=== PATIENT | male | born 1980 | race Caucasian/White ===

== ENCOUNTER 2018-08-04 07:59 | Emergency (ER) | payer OTHER, MEDICAID, SELFPAY ==
[2018-08-04 08:08] VITALS: BP 139/79; PULSE 57; RESP 17; TEMP 36.9; O2SAT 100
--- NOTE | 2018-08-04 08:08 | DI.RAD.S_ITS ---
PROCEDURE: XR CHEST 1V INDICATIONS: chest pressure TECHNIQUE: One view of the chest was acquired. COMPARISON: None. FINDINGS: Surgical changes and devices: None. Lungs and pleura: Lungs are clear. No pleural effusions or pneumothorax. Mediastinum: Mediastinal contours appear normal. Heart size is normal. Bones and chest wall: No suspicious bony lesions. Overlying soft tissues appear unremarkable. IMPRESSION: No acute pulmonary pathology. Dictated by: Justin Bernard M.D. on 08/04/2018 at 9:20 Approved by: Justin Bernard M.D. on 08/04/2018 at 9:22
--- NOTE | 2018-08-04 08:17 | ED.CHESTPAIN ---
HPI - Chest Pain General Chief Complaint: Chest Pain Stated Complaint: chest tightness Time Seen by Provider: 08/04/18 08:01 Source: patient Mode of arrival: ambulatory History of Present Illness HPI narrative: 37-year-old male smoker with a benign medical history presents with left anterior chest pain off and on for the past few days. Patient had initially seen his primary care provider in the evaluation highly suggested musculoskeletal etiology as it was sharp and stabbing and completely reproducible in nature. The patient states that it became a bit more constant last night. He denies associated cardiac equivalent such as dizziness, weakness or lightheadedness. He denies nausea, vomiting, diaphoresis, radiation, or provocation with exertion. He denies any cough productive of colored sputum or blood Related Data Home Medications Medication Instructions Recorded Confirmed atorvastatin [Lipitor] 10 mg PO DAILY 08/04/18 08/04/18 nabumetone 500 mg PO BID 08/04/18 08/04/18 Allergies Allergy/AdvReac Type Severity Reaction Status Date / Time No Known Drug Allergies Allergy Verified 08/04/18 08:11 Review of Systems Constitutional Denies chills, Denies fever(s), Denies lethargy and Denies weakness Eyes Denies change in vision, Denies eye discharge, Denies irritation and Denies loss of vision ENT Ears, Nose, Mouth, and Throat: Denies change in voice, Denies neck pain and Denies sore throat Cardiovascular Reports chest pain, Denies irregular heart rhythm, Denies lightheadedness, Denies palpitations, Denies dyspnea, Denies dyspnea on exertion and Denies orthopnea Respiratory Denies cough, Denies dyspnea, Denies dyspnea on exertion and Denies wheezing Gastrointestinal Gastrointestinal: Denies abdominal pain, Denies change in bowel habits, Denies diarrhea, Denies nausea and Denies vomiting Genitourinary Denies hematuria, Denies flank pain, Denies urinary incontinence and Denies urinary urgency Musculoskeletal Denies neck pain Integumentary/Breasts Denies pruritus, Denies erythema, Denies rash and Denies wounds Neurologic Denies confusion, Denies loss of vision and Denies weakness Psychiatric Denies anxiety, Denies confusion, Denies depression, Denies homicidal ideation and Denies suicidal ideation Endocrine Denies palpitations Hematologic/Lymphatic Denies easy bruising Allergic/Immunologic Denies wheezing [facility] Social History Smoking Status: Current every day smoker Social History Smoking Status: Current every day smoker Exam Narrative Exam Narrative: GENERAL: 37-year-old male patient who is stated age in appearance, resting comfortably although a bit anxious HEAD: Atraumatic. Normocephalic. No temporal or scalp tenderness. EYES: Pupils equal round and reactive. Extraocular motions intact. No scleral icterus. No injection or drainage. ENT: Nose without bleeding, purulent drainage or septal hematoma. Throat without erythema, tonsillar hypertrophy or exudate. Uvula midline. Airway patent. NECK: Trachea midline. No JVD or lymphadenopathy. Supple, nontender, no meningeal signs. CARDIOVASCULAR: Left anterior chest tender to palpate, also worse with range of motion of left arm Regular rate and rhythm without murmurs, gallops, or rubs. RESPIRATORY: Clear to auscultation. Breath sounds equal bilaterally. No wheezes, rales, or rhonchi. GASTROINTESTINAL: Abdomen soft, non-tender, nondistended. No hepato-splenomegaly, or palpable masses. No guarding. EXTREMITIES: No clubbing, cyanosis, or edema. No joint tenderness, effusion, or edema noted. BACK: Nontender without deformity or crepitance. No flank tenderness. NEURO: AOx3. SKIN: No rash or erythema. Initial Vital Signs Initial Vital Signs: Vital Signs Temperature 98.5 F 08/04/18 08:08 Pulse Rate 57 L 08/04/18 08:08 Respiratory Rate 17 08/04/18 08:08 Blood Pressure 139/79 08/04/18 08:08 Pulse Oximetry 100 08/04/18 08:08 Scores HEART Score Heart Score history: Slightly Suspicious Heart Score EKG: Normal Heart Score Age: < 45 years old Heart Score risk factors: 1-2 risk factors Heart Score troponin: < or = to normal limit Heart Score Total: 1 Course Orders Ordered: Discontinued Medications Aspirin (Aspirin Chew) 324 mg PO NOW ONE Stop: 08/04/18 08:09 Last Admin: 08/04/18 08:35 Dose: 324 mg Sodium Chloride (Normal Saline 0.9%) 1,000 mls @ 150 mls/hr IV CONT NELSON Last Admin: 08/04/18 09:58 Dose: Not Given Vital Signs - 8 hr 08/04/18 10:07 Pulse Rate 57 L Respiratory Rate 16 Blood Pressure 128/79 Pulse Oximetry 98 MDM - Chest Pain Lab Data Result diagrams: 08/04/18 08:25 08/04/18 08:25 Lab Results 08/04/18 08/04/18 08/04/18 Range/Units 08:25 08:25 08:25 WBC 5.4 (4.5-11.0) X10^3/uL RBC 5.18 (4.5-5.9) X10^6/uL Hgb 15.3 (13.5-17.5) g/dL Hct 44.2 (41-53) % MCV 85.3 (80-100) fL MCH 29.6 (26-34) PG MCHC 34.7 (30-36) % RDW 13.8 (11.6-14.8) % Plt Count 206 (150-400) X10^3/uL Neut % (Auto) 68.9 (50-75) % Lymph % (Auto) 19.0 L (25-40) % [place] % (Auto) 6.3 (3-14) % Eos % (Auto) 4.2 H (2-4) % Baso % (Auto) 1.6 (0-2) % Neut # (Auto) 3700 (4636-3421) /uL Lymph # (Auto) 1000 L (5993-6062) /uL [place] # (Auto) 300 (0-900) /uL Eos # (Auto) 200 (0-450) /uL Baso # (Auto) 100 (0-100) /uL D-Dimer < 200 (<230) ng/mL Sodium 139 (137-145) mmol/L Potassium 4.0 (3.4-5.1) mmol/L Chloride 104 (98-107) mmol/L Carbon Dioxide 25 (22-32) mmol/L BUN 15 (9-20) mg/dL Creatinine 0.90 (0.66-1.25) mg/dL Estimated GFR > 60.0 (>60) mL/min BUN/Creatinine Ratio 16.7 (6-22) Glucose 122 H (70-100) mg/dL Calcium 9.6 (8.4-10.2) mg/dL Total Bilirubin 1.0 (0.2-1.3) mg/dL AST 23 (17-59) IU/L ALT 31 (21-72) IU/L Alkaline Phosphatase 62 (38-126) U/L Total Creatine Kinase 121 (55-170) U/L CK-MB (CK-2) 1.42 (<2.37) ng/mL CK-MB (CK-2) Rel Index 1.2 L (1.5-5.0) % Troponin I < 0.012 (0.01-0.034) ng/mL Total Protein 7.5 (6.3-8.2) g/dL Albumin 4.7 (3.5-5.0) g/dL Globulin 2.8 (1.7-4.1) g/dL Albumin/Globulin Ratio 1.7 (1.0-2.8) Lipase 34 (23-300) U/L Imaging Data Chest x-ray: Radiologist's impression: [address] [address] XRay Report Signed Patient: Tommy Ken [facility]#: [id number] : 1980Acct:[id number] Age/Sex: 37 / MDate of Service: 08/04/18 Loc: ED Accession Number: [id number] Procedure: XR chest 1V Ordering Provider: Jaycob Mcginnis D.O. PROCEDURE: XR CHEST 1V INDICATIONS: chest pressure TECHNIQUE: One view of the chest was acquired. COMPARISON: None. FINDINGS: Surgical changes and devices: None. Lungs and pleura: Lungs are clear. No pleural effusions or pneumothorax. Mediastinum: Mediastinal contours appear normal. Heart size is normal. Bones and chest wall: No suspicious bony lesions. Overlying soft tissues appear unremarkable. IMPRESSION: No acute pulmonary pathology. Dictated by: Justin Bernard M.D. on 08/04/2018 at 9:20 Approved by: Justin Bernard M.D. on 08/04/2018 at 9:22 [facility] Narrative Medical decision making narrative: Multiple etiologies for patient's symptoms considered including: [Cardiac ischemia versus pulmonary embolism versus chest wall strain versus other] Patient's symptoms improved or duration of stay with above-stated therapies. Findings and discharge diagnosis discussed with patient/family followed by verbalization of understanding Return precautions discussed with patient/family whom verbalize understanding. Discharge Plan Departure Patient Disposition: Home Clinical Impression: Atypical chest pain Discharge Date/Time: 08/04/18 10:08 Interventions: ED Discharge Assessment Last Done: 08/04/18 10:07 Instructions: DI for Atypical Chest Pain Activity Restrictions/Additional Instructions: *You have been diagnosed with [atypical chest pain] *What to do: *Take medications as directed *Follow up with your primary care provider in 2-3 days, call for an appointment. Let them know you were seen in the Emergency Department and that we ask that you be seen in follow up *Return to ER if you should have any new, worsening or concerning symptoms Prescriptions: No Action atorvastatin [Lipitor] 10 mg Tablet 10 mg PO DAILY RF: 0 nabumetone 500 mg Tablet 500 mg PO BID RF: 0 Referrals: [facility] [Outside]
[2018-08-04 08:32] LABS: Add Manual Diff / Slide Review NO; Basophils Absolute Auto 100 /uL (0-100); Basophils Percent Auto 1.6 % (0-2); Eosinophils Absolute Auto 200 /uL (0-450); Eosinophils Percent Auto 4.2 % (2-4); Hematocrit 44.2 % (41-53); Hemoglobin 15.3 g/dL (13.5-17.5); Lymphocytes Absolute Auto 1000 /uL (1100-4500); Mean Corpuscular HGB Conc 34.7 % (30-36); Mean Corpuscular Hemoglobin 29.6 PG (26-34); Mean Corpuscular Volume 85.3 fL (80-100); Monocytes Absolute Auto 300 /uL (0-900); Monocytes Percent Auto 6.3 % (3-14); Neutrophils Absolute Auto 3700 /uL (1500-7000); Neutrophils Percent Auto 68.9 % (50-75); Platelet Count 206 X10^3/uL (150-400); Red Blood Cell Count 5.18 X10^6/uL (4.5-5.9); Red Cell Distribution Width 13.8 % (11.6-14.8); White Blood Cell Count 5.4 X10^3/uL (4.5-11.0)
[2018-08-04] MEDS: ASPIRIN 81 MG TAB 324 MG PO (08:35)
[2018-08-04 08:43] LABS: D Dimer < 200 ng/mL (<230)
[2018-08-04 08:45] LABS: Alanine Aminotransferase 31 IU/L (21-72); Albumin 4.7 g/dL (3.5-5.0); Albumin Globulin Ratio 1.7 (1.0-2.8); Alkaline Phosphatase 62 U/L (38-126); Aspartate Aminotransferase 23 IU/L (17-59); BUN Creatinine Ratio 16.7 (6-22); Blood Urea Nitrogen 15 mg/dL (9-20); Calcium 9.6 mg/dL (8.4-10.2); Carbon Dioxide 25 mmol/L (22-32); Chloride 104 mmol/L (98-107); Creatine Kinase 121 U/L (55-170); Estimated Glomerular Filt Rate > 60.0 mL/min (>60); Globulin 2.8 g/dL (1.7-4.1); Glucose 122 mg/dL (70-100); HEMOLYSIS < 15 (0-50); Lipase 34 U/L (23-300); Sodium 139 mmol/L (137-145); Total Protein 7.5 g/dL (6.3-8.2)
[2018-08-04 08:57] LABS: Troponin I < 0.012 ng/mL (0.01-0.034)
[2018-08-04 09:00] LABS: CKMB % Relative Index 1.2 % (1.5-5.0); Creatine Kinase MB 1.42 ng/mL (<2.37)
[2018-08-04 09:09] VITALS: BP 118/73; PULSE 53; RESP 16; O2SAT 98
[2018-08-04 10:07] VITALS: BP 128/79; PULSE 57; RESP 16; O2SAT 98
== END 2018-08-04 10:08 | disposition home or self-care (01) ==
PROVIDERS: Emergency Provider Emergency Medicine
DX: R07.89 Other chest pain (principal)
CPT/HCPCS: 36591; 71045; 80053; 82550; 82553; 83690; 84484; 85025; 85379; 93005; 93010; 99282; 99285

== ENCOUNTER → 2018-08-07 15:17 | Outpatient (CLI) | payer BC, OTHER, MEDICAID, SELFPAY ==
[2018-08-07 18:59] LABS: Cholesterol 244 mg/dL (140-199); HDL Cholesterol 53 mg/dL (40-60); LDL Cholesterol Calculated 158 mg/dL (<100); Lipase 55 U/L (23-300); Triglycerides 164 mg/dL (35-150)
== END ==
PROVIDERS: Visit Provider Hospitalist
DX: R07.89 Other chest pain (principal)
CPT/HCPCS: 36415; 80061; 83690

== ENCOUNTER 2023-04-22 13:35 | Emergency (ER) | payer OTHER, SELFPAY ==
[2023-04-22 13:42] VITALS: BP 141/91; PULSE 85; RESP 16; TEMP 36.6; O2SAT 99; BMI 27.8
--- NOTE | 2023-04-22 13:55 | DI.RAD.S_ITS ---
PROCEDURE: XR FINGER RT MIN 2V INDICATIONS: crush injury TECHNIQUE: AP hand, 2 views of the 2nd finger(s) acquired. COMPARISON: None. FINDINGS: Bones: Small radiodensities adjacent to the 1st digit are present, consistent with small fracture fragments and/or foreign bodies. Soft tissues: No suspicious soft tissue calcifications. IMPRESSION: Small fracture fragments and/or foreign bodies adjacent to the 1st digit. Dictated by: Darius Meneses M.D. on 04/22/2023 at 14:22 Approved by: Darius Meneses M.D. on 04/22/2023 at 14:26
[2023-04-22] MEDS: IBUPROFEN 400 MG TABLET 800 MG PO (17:29)
[2023-04-22] MEDS: BACITRACIN OINT 0.9 GM PCKT 1 APPLIC TOP (17:30)
--- NOTE | 2023-04-22 17:54 | ED_ITS ---
HPI - Extremity Injury (Upper) <Willie Thompson PA-C - Last Filed: 04/22/23 18:01> General Chief Complaint: Extremity Injury, Upper Stated Complaint: smushed index finger right hand Time Seen by Provider: 04/22/23 15:00 Source: patient Mode of arrival: Ambulatory History of Present Illness HPI narrative: 42-year-old male with no reported past medical history presents to the ED status post a finger injury sustained at work. Patient states that his right pointer finger was accidentally smashed between 2 heavy pieces of metal. Bleeding is controlled with pressure. Patient is not on blood thinners. Patient denies numbness, tingling, weakness. Patient endorses pain in the injured finger. Patient endorses full range of motion. Related Data Previous Rx's Medication Instructions Recorded cephalexin 500 mg capsule 500 mg PO QID 5 days #20 caps 04/22/23 Allergies Allergy/AdvReac Type Severity Reaction Status Date / Time No Known Drug Allergies Allergy Verified 04/22/23 13:45 Review of Systems <Willie Thompson PA-C - Last Filed: 04/22/23 18:01> Constitutional Constitutional: Denies chills, Denies fatigue, Denies fever(s), Denies frequent falls, Denies lethargy and Denies weakness Eyes Eyes: Denies change in vision, Denies eye discharge, Denies irritation and Denies loss of vision ENT Ears, Nose, Mouth, and Throat: Denies change in voice, Denies dizziness, Denies neck pain, Denies sore throat and Denies throat swelling Cardiovascular Cardiovascular: Denies chest pain, Denies irregular heart rhythm, Denies lightheadedness, Denies palpitations, Denies dyspnea, Denies dyspnea on exertion and Denies orthopnea Respiratory Respiratory: Denies cough, Denies dyspnea, Denies dyspnea on exertion and Denies wheezing Gastrointestinal Gastrointestinal: Denies abdominal pain, Denies change in bowel habits, Denies diarrhea, Denies nausea and Denies vomiting Musculoskeletal Musculoskeletal: Denies neck pain and Denies numbness Integumentary/Breasts Skin/Breast: Denies pruritus, Denies erythema, Denies rash and Reports wounds Neurologic Neurologic: Denies behavioral changes, Denies confusion, Denies dizziness, Denies frequent falls, Denies loss of vision, Denies numbness and Denies weakness Psychiatric Psychiatric: Denies anxiety, Denies behavioral changes, Denies confusion, Denies depression, Denies homicidal ideation and Denies suicidal ideation Endocrine Endocrine: Denies fatigue, Denies flushing and Denies palpitations Hematologic/Lymphatic Hematologic/Lymphatic: Denies easy bruising Allergic/Immunologic Allergic/Immunologic: Denies urticaria, Denies throat swelling and Denies wheezing Patient History <Willie Thompson PA-C - Last Filed: 04/22/23 18:01> Surgical History Anesthesia History of vasectomy History of sinus surgery Social History Smoking Status: Current every day smoker Smoking Status: Current every day smoker alcohol intake frequency: 0-2 drinks per day Substance Use Type: marijuana Exam <Willie Thompson PA-C - Last Filed: 04/22/23 18:01> Narrative Exam Narrative: Const General:?cooperative, healthy appearing and comfortable HENID Head:?normal to inspection Ears:?hearing grossly normal bilaterally Nose:?external nose normal Face and sinus:?normal facial exam and sinuses nontender Mouth:?oral mucosae normal Throat:?posterior oropharynx normal Eyes General:?appearance normal, both eyes and all related structures Neck Neck:?normal visual inspection and no lymphadenopathy noted Resp Effort & Inspection:?normal respiratory effort Auscultation:?clear to auscultation bilaterally Cardio Rate:?regular rate Rhythm:?regular rhythm Integumentary There are 2 irregular lacerations to the right pointer finger. There is full range of motion. Strength and sensation is intact. Patient is neurovascularly intact. Bleeding is controlled with pressure. Neuro General:?patient alert, patient awake and patient oriented x3 Initial Vital Signs Initial Vital Signs: Vital Signs Temperature 98 F 04/22/23 13:42 Pulse Rate 85 04/22/23 13:42 Respiratory Rate 16 04/22/23 13:42 Blood Pressure 141/91 H 04/22/23 13:42 Pulse Oximetry 99 04/22/23 13:42 Oxygen Delivery Method Room Air 04/22/23 13:42 <Marguerite Mercado DO - Last Filed: 04/23/23 08:39> Initial Vital Signs Initial Vital Signs: Vital Signs Temperature 98 F 04/22/23 13:42 Pulse Rate 85 04/22/23 13:42 Respiratory Rate 16 04/22/23 13:42 Blood Pressure 141/91 H 04/22/23 13:42 Pulse Oximetry 99 04/22/23 13:42 Oxygen Delivery Method Room Air 04/22/23 13:42 Procedures <Willie Thompson PA-C - Last Filed: 04/22/23 18:01> Laceration Repair Laceration 1: Site: hand Side (If applicable): right Size (cm): 2 Description: irregular Depth: simple, single layer Local Anesthetic: lidocaine 2% Amount of anesthesia used (mL): 6 Pre-repair: wound explored, irrigated extensively, deep structures intact and wound margins revised Skin layer closed with: nylon Skin layer suture size: 5-0 Number of sutures: 13 Technique: simple, interrupted Laceration 2: Site: hand Side (If applicable): right Size (cm): 1.5 Description: linear Depth: simple, single layer Local Anesthetic: lidocaine 2% Amount of anesthesia used (mL): 2 Pre-repair: wound explored, irrigated extensively and deep structures intact Skin layer closed with: nylon Skin layer suture size: 5-0 Number of sutures: 5 Technique: simple, interrupted Course <Willie Thompson PA-C - Last Filed: 04/22/23 18:01> Orders Ordered: Discontinued Medications Bacitracin (Bacitracin Oint 0.9 Gm Pckt) 1 applic TOP NOW ONE Stop: 04/22/23 17:27 Last Admin: 04/22/23 17:30 Dose: 1 applic Documented By: ALTAGRACIA Bacitracin (Bacitracin Oint 0.9 Gm Pckt) 1 applic TOP NOW ONE Stop: 04/22/23 17:27 Last Admin: 04/22/23 17:30 Dose: Not Given Documented By: ALTAGRACIA Ibuprofen (Ibuprofen 400 Mg Tablet) 800 mg PO NOW ONE Stop: 04/22/23 17:23 Last Admin: 04/22/23 17:29 Dose: 800 mg Documented By: AMTeja Vital Signs Vital signs: Vital Signs - 8 hr 04/22/23 13:42 Temperature 98 F Pulse Rate 85 Respiratory Rate 16 Blood Pressure 141/91 H Pulse Oximetry 99 Oxygen Delivery Method Room Air <Marguerite Mercado DO - Last Filed: 04/23/23 08:39> Orders Ordered: Discontinued Medications Bacitracin (Bacitracin Oint 0.9 Gm Pckt) 1 applic TOP NOW ONE Stop: 04/22/23 17:27 Last Admin: 04/22/23 17:30 Dose: 1 applic Documented By: ALTAGRACIA Bacitracin (Bacitracin Oint 0.9 Gm Pckt) 1 applic TOP NOW ONE Stop: 04/22/23 17:27 Last Admin: 04/22/23 17:30 Dose: Not Given Documented By: ALTAGRACIA Ibuprofen (Ibuprofen 400 Mg Tablet) 800 mg PO NOW ONE Stop: 04/22/23 17:23 Last Admin: 04/22/23 17:29 Dose: 800 mg Documented By: AMTeja Vital Signs Vital signs: Vital Signs - 8 hr 04/22/23 13:42 Temperature 98 F Pulse Rate 85 Respiratory Rate 16 Blood Pressure 141/91 H Pulse Oximetry 99 Oxygen Delivery Method Room Air MDM - Extremity Injury (Upper) <Willie Thompson PA-C - Last Filed: 04/22/23 18:01> MDM Narrative Medical decision making narrative: 42-year-old male with no reported past medical history presents to the ED status post a finger injury sustained at work. Concern for fracture/dislocation versus laceration versus other. Obtained finger x-ray which shows small fracture fragments and are or foreign bodies adjacent to the 1st in the ED digit. Patient's history is more consistent with fracture fragments, he denies any foreign bodies as a possibility. Lacerations were repaired with 18 sutures. Sutures will need to be removed in 7-10 days. Prescribed antibiotics. Wound care instructions and suture removal discussed with patient. Recommend follow- up with hand specialist for further evaluation. ED return precautions discussed with patient. Patient verbalized understanding. Medical records reviewed: Yes Discharge Plan Departure Patient Disposition: Home Clinical Impression: Laceration Finger fracture Qualifiers: Encounter type: initial encounter Finger: index finger Fracture type: open Phalanx: unspecified phalanx Fracture alignment: nondisplaced Laterality: right Qualified Code(s): S62.600B - Fracture of unspecified phalanx of right index finger, initial encounter for open fracture Instructions: DI for Laceration Repair Activity Restrictions/Additional Instructions: You were evaluated in the ED today for a finger injury. You had a small fracture in the injured finger which showed up as small bone particles, however the bone is not structurally fracture. The laceration was repaired with 18 sutures. You have been prescribed antibiotics. Please follow-up with a hand specialist as soon as possible for further evaluation of the hand. Please watch for signs of infection including worsening redness, pain, swelling, discharge, warmth. Return to the ED if you note any signs of infection. Please keep the injury clean and dry for the 1st 24 hours, following which you may wash gently with soap and water. Please keep the finger dry with no wet dressings on for any length of time. Prescriptions: New cephalexin 500 mg capsule 500 mg PO QID 5 Days Qty: 20 0RF Stand Alone Forms: Patient Portal/API ED Sign-out <Marguerite Mercado DO - Last Filed: 04/23/23 08:39> Cosign ED Attending Cosignature Attestation: I was immediately available in the department for consultation.
== END 2023-04-22 17:44 | disposition home or self-care (01) ==
PROVIDERS: Emergency Provider Student in an Organized Health Care Education/Training Program
DX: S62.600A Fracture of unspecified phalanx of right index finger, initial encounter for closed fracture (principal); S61.210A Laceration without foreign body of right index finger without damage to nail, initial encounter; W23.0XXA Caught, crushed, jammed, or pinched between moving objects, initial encounter
CPT/HCPCS: 12002; 73140; 99283; 99284

== ENCOUNTER → 2023-05-22 13:44 | Outpatient (CLI) | payer OTHER, SELFPAY ==
[2023-05-22 15:27] LABS: Appearance Urine UA CLEAR; Bilirubin Urine UA NEGATIVE (NEGATIVE); Color Urine UA YELLOW; Glucose Urine UA NEGATIVE (Negative); Ketones Urine UA NEGATIVE (NEGATIVE); Leukocyte Esterase Urine UA NEGATIVE (NEGATIVE); Nitrite Urine UA NEGATIVE (Negative); Occult Blood Urine UA NEGATIVE (Negative); Protein Urine UA NEGATIVE (Negative); Urobilinogen Urine UA 0.2 E.U./dL (0.2)
[2023-05-22 15:29] LABS: Add Manual Diff / Slide Review NO; Basophils Absolute Auto 100 /uL (0-100); Basophils Percent Auto 0.9 % (0-2); Eosinophils Absolute Auto 200 /uL (0-450); Eosinophils Percent Auto 2.4 % (2-4); Hematocrit 42.9 % (41-53); Hemoglobin 14.6 g/dL (13.5-17.5); Lymphocytes Absolute Auto 1700 /uL (1100-4500); Lymphocytes Percent Auto 24.9 % (25-40); Mean Corpuscular HGB Conc 33.9 % (30-36); Mean Corpuscular Hemoglobin 28.7 PG (26-34); Mean Corpuscular Volume 84.5 fL (80-100); Monocytes Absolute Auto 500 /uL (0-900); Monocytes Percent Auto 6.7 % (3-14); Neutrophils Absolute Auto 4400 /uL (1500-7000); Neutrophils Percent Auto 65.1 % (50-75); Platelet Count 220 X10^3/uL (150-400); Red Blood Cell Count 5.08 X10^6/uL (4.5-5.9); Red Cell Distribution Width 13.3 % (11.6-14.8); White Blood Cell Count 6.8 X10^3/uL (4.5-11.0)
[2023-05-22 15:40] LABS: Bacteria Urine None Seen; RBC Urine 0-1/HPF (0-5/HPF); Squamous Epithelial Cell Urine None Seen (0-5/HPF); Urine Volume 10mL (spun); WBC Urine None Seen (0-5/HPF)
[2023-05-22 15:41] LABS: Culture Indicated Urine Specimen Cultured
[2023-05-22 16:05] LABS: Alanine Aminotransferase 32 IU/L (<50); Albumin 4.6 g/dL (3.5-5.0); Albumin Globulin Ratio 1.6 (1.0-2.8); Alkaline Phosphatase 61 U/L (38-126); Aspartate Aminotransferase 24 IU/L (17-59); Bilirubin Total 0.6 mg/dL (0.2-1.3); Blood Urea Nitrogen 12 mg/dL (9-20); Calcium 9.7 mg/dL (8.4-10.2); Carbon Dioxide 26 mmol/L (22-32); Chloride 106 mmol/L (98-107); Cholesterol 267 mg/dL (140-199); Estimated Glomerular Filt Rate > 60 mL/min (>60); Globulin 2.9 g/dL (1.7-4.1); Glucose 94 mg/dL (70-100); HDL Cholesterol 43 mg/dL (40-60); HEMOLYSIS < 15 (0-50); LDL Cholesterol Calculated 175 mg/dL (<100); Potassium 4.2 mmol/L (3.4-5.1); Sodium 139 mmol/L (137-145); Total Protein 7.5 g/dL (6.3-8.2); Triglycerides 246 mg/dL (35-150)
== END ==
PROVIDERS: PCP Family Medicine; Referring Provider Family Medicine; Visit Provider Family Medicine
DX: Z00.00 Encounter for general adult medical examination without abnormal findings (principal); R31.29 Other microscopic hematuria
CPT/HCPCS: 36415; 80053; 80061; 81001; 85025; 87086

== ENCOUNTER → 2023-09-09 09:15 | Outpatient (CLI) | payer OTHER, SELFPAY ==
[2023-09-09 10:14] LABS: Cholesterol 243 mg/dL (140-199); HDL Cholesterol 58 mg/dL (40-60); LDL Cholesterol Calculated 161 mg/dL (<100); Triglycerides 122 mg/dL (35-150)
== END ==
PROVIDERS: PCP Family Medicine; Referring Provider Family Medicine; Visit Provider Family Medicine
DX: R53.83 Other fatigue (principal); E78.00 Pure hypercholesterolemia, unspecified
CPT/HCPCS: 36415; 80061; 84402; 84403